=== PATIENT | female | born 1990 | race Caucasian/White ===

== ENCOUNTER 2024-06-20 13:15 | Observation (INO) | payer SELFPAY ==
[~2024-06-20 13:15] MED LIST: Iopamidol-370 76% 500 ML MDV (1 ML CHARGE) ONE
[2024-06-20] MEDS ORDERED: Ketorolac Tromethamine 30 MG (1 mL) VIAL ONE (13:44)
[2024-06-20] MEDS ORDERED: Metoclopramide HCl 10 MG (2 mL) VIAL ONE (13:45)
[2024-06-20 14:11] LABS: #Basophils 0.04 10x3/uL (0.0-0.2); #Eosinophils Less than 0.03 10x3/uL (0.0-0.7); %Basophils 0.2 % (0.0-1.0); %Lymphocytes 4.6 % (21.0-51.0); %Monocytes 2.8 % (0.0-10.0); %Neutrophils 91.9 % (42.0-75.0); Hematocrit 43.3 % (36.0-47.0); Hemoglobin 14.8 g/dL (12.0-16.0); Mean Corpuscular HGB CONC 34.2 g/dL (32.0-36.0); Mean Corpuscular Hemoglobin 31.2 pg (27.0-31.0); Mean Corpuscular Volume 91.4 fL (78.0-98.0); Mean Platelet Volume 9.6 fL (7.4-10.4); Platelet Count 277 10x3/uL (130-400); RBC Distribution Width 12.5 % (11.5-14.5); Red Blood Cell (RBC) Count 4.74 mill/uL (4.20-5.40)
[2024-06-20 14:23] LABS: BHCG - Serum Negative (NEGATIVE); Pregs Control Background? CLEAR/WHITE (CLR/WHITE); Pregs Control Bar Appear? YES (CONTROL BAR)
[2024-06-20 14:29] LABS: ALT (SGPT) 28 U/L (8-55); AST (SGOT) 19 U/L (5-34); Albumin 3.7 g/dL (3.5-5.0); Alkaline Phosphatase 63 U/L (40-110); Anion Gap 12 mmol/L (10-20); BUN (Urea Nitrogen) 8 mg/dL (7.0-18.7); Bilirubin, Total 0.3 mg/dL (0.2-1.2); Calc. Creatinine Clearance 0 mL/min (70-130); Carbon Dioxide 21 mmol/L (22-29); Chloride 105 mmol/L (98-107); Estimated GFR 120; Globulin 3.5 g/dL (2.4-3.5); Glucose 104 mg/dL (70-105); Lipase 23 U/L (8-78); Potassium 3.9 mmol/L (3.5-5.1); Protein, Total 7.2 g/dL (6.0-8.3); Sodium 134 mmol/L (136-145)
[2024-06-20 14:30] LABS: Acetaminophen Less than 10 mcg/mL (Less than 10); Alcohol Less than 10.0 mg/dL (Less than 10); Salicylate Less than 8.0 mg/dL (Less than 8.0)
[2024-06-20] MEDS ORDERED: hydrALAZINE 20 MG/ML VIAL SLOW IVP PRN (16:07)
[2024-06-20] MEDS ORDERED: Morphine 4 MG/ML VIAL ONE (16:07)
[2024-06-20] MEDS ORDERED: Ondansetron PF 4 MG/2 ML Vial IVP PRN (16:07)
[2024-06-20] MEDS ORDERED: Acetaminophen 325 MG TAB PO PRN (16:07)
[2024-06-20] MEDS ORDERED: Glucagon 1 MG/ML KIT IM PRN (16:07)
[2024-06-20] MEDS ORDERED: Sodium Chloride 0.9% 100 ML ONE (16:07)
[2024-06-20] MEDS ORDERED: Dextrose 50% Abboject 50 ML SYRINGE SLOW IVP PRN (16:07)
[2024-06-20] MEDS ORDERED: Dextrose 5% in Water 1,000 ML IV PRN (16:07)
[2024-06-20] MEDS ORDERED: Piperacillin/Tazobactam 4.5 GM VIAL ONE (16:07)
[2024-06-20] MEDS ORDERED: HYDROcodone/Acetaminophen 5/325 mg Tablet PO PRN (16:08)
[2024-06-20] MEDS ORDERED: traMADol HCl 50 MG TAB PO PRN (16:08)
[2024-06-20 16:43] LABS: Bacteria/HPF None Seen HPF (None Seen); Bilirubin Negative (Negative); Blood, Urine Negative (Negative); CAUTI Indications for Culture Dysuria,urgency,freq; Clarity Clear (Clear); Glucose, Urine (Dipstick) Normal (Negative); Ketone, Urine 20 mg/dL (Negative); Leukocyte Negative Leu/uL (Negative); Nitrite Negative (Negative); Protein, Urine (Dipstick) Negative (Neg-Trace); RBC/HPF 0-3 HPF (0-3); Specific Gravity, Urine 1.049 (1.002-1.036); Squamous Epithelial None Seen HPF (0-3); Urobilinogen Normal mg/dL (Less than 2); WBC/HPF 0-3 HPF (0-3); pH, Urine 7.5 (5.0-9.0)
[2024-06-20 16:45] LABS: Urine Culture Reflex No No
[2024-06-20 16:50] LABS: Amphetamine Not Detected (NotDetected); Barbiturates Screen Detected (NotDetected); Benzodiazepine Screen Not Detected (NotDetected); Cocaine Metabolite Screen Not Detected (NotDetected); Methadone Not Detected (NotDetected); Methamphetamine Not Detected (NotDetected); Opiate Screen Not Detected (NotDetected); Oxycodone Screen Not Detected (NotDetected); Phencyclidine (PCP) Not Detected (NotDetected); THC/Cannabinoid Screen Not Detected (NotDetected); Tricyclic Screen Not Detected (NotDetected)
[2024-06-20 16:53] VITALS: BMI 30.7
[2024-06-20] MEDS: Lactated Ringer's 1,000 ML IV SCH (17:45)
[2024-06-20] MEDS: Ketorolac Tromethamine 30 MG (1 mL) VIAL IVP SCH (17:48)
[2024-06-20] MEDS: Piperacillin/Tazobactam 3.375 GM in Sodium Chloride 0.9% 100 ML IVPB SCH (20:12)
[2024-06-21] MEDS: Morphine 2 MG/ML VIAL SLOW IVP PRN (04:27)
[2024-06-21 05:38] LABS: #Basophils 0.03 10x3/uL (0.0-0.2); %Basophils 0.2 % (0.0-1.0); %Eosinophils 0.2 % (0.0-10.0); %Lymphocytes 12.3 % (21.0-51.0); %Monocytes 7.7 % (0.0-10.0); %Neutrophils 79.2 % (42.0-75.0); Hematocrit 36.6 % (36.0-47.0); Hemoglobin 12.7 g/dL (12.0-16.0); Mean Corpuscular HGB CONC 34.7 g/dL (32.0-36.0); Mean Corpuscular Hemoglobin 31.4 pg (27.0-31.0); Mean Corpuscular Volume 90.4 fL (78.0-98.0); Mean Platelet Volume 10.1 fL (7.4-10.4); Platelet Count 240 10x3/uL (130-400); RBC Distribution Width 12.9 % (11.5-14.5); Red Blood Cell (RBC) Count 4.05 mill/uL (4.20-5.40)
[2024-06-21 05:52] LABS: Anion Gap 11 mmol/L (10-20); BUN (Urea Nitrogen) 10 mg/dL (7.0-18.7); Calc. Creatinine Clearance 156 mL/min (70-130); Calcium 8.4 mg/dL (7.8-10.44); Carbon Dioxide 22 mmol/L (22-29); Chloride 110 mmol/L (98-107); Estimated GFR 117; Glucose 106 mg/dL (70-105); Potassium 3.4 mmol/L (3.5-5.1); Sodium 140 mmol/L (136-145)
[2024-06-21] MEDS ORDERED: Electrolyte Replacement Protocol FS PRN (08:30)
[2024-06-21] MEDS: Potassium Chloride 20 MEQ in Premix 1 BAG IVPB SCH (09:12)
[2024-06-21] MEDS ORDERED: EPINEPHrine 1 MG/ML VIAL ONE (10:19)
[2024-06-21] MEDS ORDERED: Bupivacaine 0.25% HCL 30 ML VIAL ONE (10:19)
[2024-06-21] MEDS ORDERED: PROPOFOL 20 ML ONE (10:32)
[2024-06-21] MEDS ORDERED: fentaNYL PF 100 MCG/2 ML SYRINGE ONE (10:32)
[2024-06-21] MEDS ORDERED: Midazolam HCl 2 mg/2 ml Vial ONE ×2 (10:33→10:44)
[2024-06-21] MEDS ORDERED: Rocuronium Bromide 10 MG/ML (10ML VIAL) ONE (10:38)
[2024-06-21] MEDS ORDERED: Lidocaine 1% PF 5 ML VIAL ONE (10:38)
[2024-06-21] MEDS ORDERED: Albuterol HFA (OR) 200 PUFF INH ONE ×2 (11:14→11:28)
[2024-06-21] MEDS ORDERED: cefOXitin 2 GM VIAL ONE (11:29)
[2024-06-21] MEDS ORDERED: Ketamine In 0.9 % NaCl 50 MG/5 ML SYRINGE ONE (11:39)
[2024-06-21] MEDS ORDERED: Ondansetron PF 4 MG/2 ML Vial ONE (12:01)
[2024-06-21] MEDS ORDERED: Dexamethasone 20 MG/5 ML VIAL ONE (12:01)
[2024-06-21] MEDS ORDERED: NEOSTIGMINE 3 MG/3 ML SYRINGE ONE (12:02)
[2024-06-21] MEDS ORDERED: Glycopyrrolate 0.2 MG/ML 5 ML SYRINGE ONE (12:02)
[2024-06-21] MEDS ORDERED: fentaNYL 50 mcg/mL 1 mL Vial ONE ×4 (12:14→12:56)
[2024-06-21] MEDS: HYDROcodone/Acetaminophen 10/325 mg Tablet PO PRN (17:20)
[2024-06-21 17:36] VITALS: BP 116/78; TEMP 98.6
[2024-06-22] MEDS ORDERED: FLU (Fluarix Triv) TS24-25(6MOS UP)/PF 45 MCG/0.5 ML Syringe IM ONE (09:00)
== END 2024-06-21 18:45 | disposition home or self-care (01) ==
LOC: ERS 13:15 → SURG B 16:39
PROVIDERS: ADMIT Surgery; ATTEND Surgery
PROC: 0DTJ4ZZ Resection of Appendix, Percutaneous Endoscopic Approach (ICD-10-PCS; principal; 2024-06-21)
DX: K35.30 Acute appendicitis with localized peritonitis, without perforation or gangrene (principal); Z88.1 Allergy status to other antibiotic agents; Z79.899 Other long term (current) drug therapy; Z90.49 Acquired absence of other specified parts of digestive tract; Z98.890 Other specified postprocedural states; F17.210 Nicotine dependence, cigarettes, uncomplicated
CPT/HCPCS: 36415; 74177; 80048; 80053; 80306; 80307; 81001; 83605; 83690; 84703; 85025; 87040; 88304; 96365; 96374; 96375; 96376; A4314; A4649; G0378; J0171; J0665; J0694; J1100; J1885; J2250; J2272; J2405; J2543; J2704; J2765; J3010; J3480; J3490; J7120; Q9967